=== PATIENT | female | born 1980 | race Caucasian/White ===

== ENCOUNTER 2017-07-20 20:00 | Emergency (ER) | END 2017-07-21 00:32 | disposition home or self-care (01) ==

== ENCOUNTER 2017-10-27 20:21 | Emergency (ER) | END 2017-10-28 01:11 | disposition home or self-care (01) ==

== ENCOUNTER 2017-11-28 03:14 | Emergency (ER) | END 2017-11-28 04:42 | disposition left against medical advice (07) ==

== ENCOUNTER 2017-12-09 21:18 | Emergency (ER) | END 2017-12-10 00:55 | disposition home or self-care (01) ==

== ENCOUNTER 2018-12-11 07:29 | Emergency (ER) | payer OTHER ==
[~2018-12-11] VITALS: Wt 112.0 kg
[~2018-12-11 07:29] MED LIST: CIPR500T4 PO; DOCO200C5 PO; HYDR-4011 PO; HYDR15SO8 PO; IBUP-1542 PO; LORA-441 PO; METR500T PO; NAPR-985 PO; PREN1TAB49 PO; PREN1TAB67 PO; SAME MEDS
[2018-12-11 07:32] VITALS: BP 159/89; PULSE 83; RESP 18
[2018-12-11] MEDS ORDERED: IBUPROFEN 600 MG TAB PO ONE (08:00)
== END 2018-12-11 08:16 | disposition home or self-care (01) ==
LOC: FTE 07:29
DX: M21.41 Flat foot [pes planus] (acquired), right foot (principal); I10 Essential (primary) hypertension; M72.2 Plantar fascial fibromatosis
CPT/HCPCS: Z7502; Z7610; 99282